=== PATIENT | male | born 1990 | race Caucasian/White ===

== ENCOUNTER 2023-02-19 20:17 | Emergency (ER) | payer SELFPAY ==
[~2023-02-19] VITALS: Ht 190.5 cm; Wt 91.0 kg
[2023-02-19 20:27] VITALS: BP 139/86
[2023-02-19] MEDS ORDERED: LIDOCAINE HCL/PF 1% 10 MG/ML 5ML VIAL INFIL ONE (23:15)
[2023-02-19] MEDS ORDERED: BACITRACIN ZINC OINT UDPKT TOP ONE (23:15)
[2023-02-19] MEDS ORDERED: TETANUS, DIPHTHERIA, PERTUSSIS VAC/PF 0.5ML (>10YR OLD) IM ONE (23:15)
[2023-02-19] MEDS ORDERED: [UNRECOGNIZED DRUG - CODE] TP ×2 (23:38)
== END 2023-02-20 01:04 | disposition home or self-care (01) ==
LOC: ER 20:17
DX: S61.411A Laceration without foreign body of right hand, initial encounter (principal); Z88.0 Allergy status to penicillin; X58.XXXA Exposure to other specified factors, initial encounter; Y99.0 Civilian activity done for income or pay; Y92.89 Other specified places as the place of occurrence of the external cause
CPT/HCPCS: 12001; 73130; 90471; 90715; 99283; Z7610